=== PATIENT | female | born 1975 | race Caucasian/White ===

== ENCOUNTER 2016-04-26 21:13 | Emergency (ER) | payer OTHER ==
[2016-04-26] MEDS ORDERED: ZOFRAN IV ONE (21:41)
[2016-04-26] MEDS ORDERED: NS 500 ML IV ONE (21:41)
[2016-04-26] MEDS ORDERED: BENADRYL IV ONE (21:41)
[2016-04-26] MEDS ORDERED: SOLU-MEDROL IV ONE (21:41)
[2016-04-26] MEDS ORDERED: SODIUM CHLORIDE 0.9% INJ ONE (21:41)
[2016-04-26] MEDS ORDERED: PEPCID IV ONE (21:41)
--- NOTE | 2016-04-26 22:47 | PROVIDER DOCUMENTATION ---
HPI-Rash/Wound/ReCheck - General Chief Complaint: Allergic Reaction Stated Complaint: RASH Time Seen by Provider: 04/26/16 21:40 Source: patient Allergies/Adverse Reactions: Allergies Allergy/AdvReac Type Severity Reaction Status Date / Time lansoprazole [From Prevacid] Allergy Severe RASH Verified 03/03/16 17:40 adhesive Allergy Mild RASH Verified 03/03/16 17:40 tramadol Allergy Unknown Verified 03/03/16 17:40 Home Medications: Home Medication List Medication Instructions Recorded Confirmed Last Taken Type Gabapentin 600 mg PO TID 01/28/14 03/03/16 02/13/16 History Clonazepam [Klonopin] 1 mg PO BID PRN PRN 04/14/15 03/03/16 02/13/16 History Oxycodone HCl/Acetaminophen 1 each PO Q6H 07/08/15 03/03/16 02/13/16 History [Percocet 10-325 mg Tablet] Ergocalciferol (Vitamin D2) 50,000 unit PO DIRECTED 03/03/16 03/03/16 Unknown History [Vitamin D] Phenytoin [Dilantin] 400 mg PO QHS 03/03/16 03/03/16 Unknown History Epinephrine Auto Injector [Epipen] 0.3 mg IM DIRECTED PRN PRN #1 04/26/16 Unknown Rx [email or web address] Ondansetron Odt [Zofran 8Mg Odt] 8 mg PO Q8H PRN PRN #20 tablet 04/26/16 Unknown Rx - History of Present Illness-Dermatology Nature of Presenting Problem: 40 yof with generalized rash and itching. Pt not sure what has caused it at this time. Pt denies any SOB or throat itching. Location: reports: generalized Quality: reports: itchy Severity: reports: moderate Onset/Duration: reports: abrupt Timing: reports: still present, getting worse Context/Associated Symptoms: reports: rash Identifiable cause?: No Exposure: reports: unknown cause Modifying Factors: worse with: antihistamine, calamine lotion, prednisone, scratching, topical steriods, other Similar Symptoms Previously?: No Recently seen or treated by another doctor?: No Review of Systems - Adult - REVIEW OF SYSTEMS - ADULT Constitutional: reports: see HPI. denies: no symptoms reported, chills, fever, fatique, night sweats, weight gain, weight loss, other Eyes: reports: no symptoms reported. denies: see HPI, discharge, dry eyes, decreased vision, blurred vision, double vision, eye pain, redness, other Ears, Nose, Mouth & Throat: reports: no symptoms reported. denies: see HPI, ear discharge, ear pain, hearing loss, tinnitus, epistaxis, sinus problem, nose pain, loose teeth, mouth/dental pain, mouth swelling, hoarseness, throat pain, throat swelling, other Cardiovascular: reports: no symptoms reported. denies: see HPI, chest pain, edema, heart murmur, irregular heart rate, orthopnea, palpitations, poor circulation, PND, syncope, other Respiratory: reports: no symptoms reported. denies: see HPI, chronic cough, cough, dyspnea on exertion, excessive sputum production, hemoptysis, pleurisy, shortness of breath, wheezing, other Gastrointestinal: reports: no symptoms reported. denies: see HPI, abdominal pain, hematemesis, constipation, diarrhea, difficulty swallowing, frequent heartburn, nausea, poor appetite, rectal bleeding, vomiting, other Genitourinary: reports: no symptoms reported. denies: see HPI, dysuria, discharge, frequency, flank pain, frequent UTI's, hematuria, hesitency, incontinence, urinary retention, urgency, other Integumentary: reports: see HPI, hives, rash. denies: no symptoms reported, hair loss, itching, mole changes, nail changes, skin sores/ulcer, skin thickening, other Neurological: reports: no symptoms reported. denies: see HPI, ataxia, dizziness /vertigo, headache/migraines, loss of balance, numbness, paresthesia, seizure, slurred speech, syncope, tremors, other All Other Systems: Reviewed and Negative Past History - Adult - PAST MEDICAL HISTORY-ADULT Review of Records: reports: Old Records Reviewed, Nursing Assessment Review, Medications Reviewed, Social history reviewed & non-contributory. 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 Cantu according to pt at age 20) Psychiatric: reports: bipolar, depression Endocrine/Immune: reports: denies history Other Conditions: reports: denies history - PRIOR SURGERIES/PROCEDURES Surgical/Procedure History: reports: appendectomy, hysterectomy, BTL, , back/neck (L4 and L5), gastric bypass - IMMUNIZATION STATUS Childhood Immunizations: See Nurse Assessment Flu Vaccine: See Nurse Assessment - FAMILY HISTORY Family History: reviewed, not pertinent Physical Exam-General - PHYSICAL EXAM-ADULT Initial Vital Signs Reviewed: Yes - CONSTITUTIONAL General Appearance: appears well, alert, moderate distress - EYES Eyes: PERRL/EOMI, pink conjunctivae. negative: fundi clear, no AV nicking, anisocoria, conjuctival exudate, EOM palsy, meningismus, pale conjunctivae, photophobia, sclera injected, scleral icterus, subconjunctival hemorrhage, sunken eyes, other - HEAD, EARS, NOSE, MOUTH & THROAT HENMT: normocephalic/atraumatic, moist mucous membranes, normal ENT inspection, TMs normal, pharynx normal. negative: angioedema, dental decay, hearing deficit , pharyngeal erythema, tonsillar exudate, TM abnormal, TM obscurred by cerumen, frontal tenderness, maxillary tenderness, other - NECK Neck: non-tender, full range of motion, supple, normal inspection. negative: Brudzinski's sign, carotid bruit, C-spine tenderness, limited range of motion, lymphadenopathy, meningismus, trachial deviation, tender lateral, tender midline , thyromegaly, other - RESPIRATORY Respiratory: chest non-tender, lungs clear, normal breath sounds, no pleuratic chest pain, no respiratory distress, no accessory muscle use. negative: respiratory distress, decreased breath sounds, accessory muscle use, crackles, rales, rhonchi, stridor, wheezing, dull on percussion, prolonged expiration, pain on inspiration, plerual rub, retractions, splinting, decreased rate, increased rate, crepitus, other - CARDIOVASCULAR Cardiovascular: normal peripheral pulses, regular rate, rhythm, no edema, no gallop, no JVD, no murmur. negative: JVD, bradycardia, tachycardia, diastolic murmur, systolic murmur, gallop/S3, gallop/S4, extra beats, friction rub, irregularly irregular, PMI displaced laterally, other - GASTROINTESTINAL (ABDOMEN) Abdominal Exam: normal bowel sounds, non tender, soft, no organomegaly, no pulsatile mass. negative: abdominal bruit, abnormal bowel sounds, distended, guarding, rigid, rebound, tenderness, hernia, mass, hepatomegaly, spleenomegaly , McBurney's point tenderness, Cody's sign, obturator sign, prominent aortic pulsations, psoas, Rovsing's sign, other - GENITOURINARY Female Genitalia/Pelvic Exam: deferred - LYMPHATIC Lymphatic: no adenopathy. negative: axilla node tender, cervical node tenderness, inguinal node tender, enlargement, striations, streaking, other - MUSCULOSKELETAL Back Exam: normal inspection, no CVA tenderness, no vertebral tenderness. negative: CVA tenderness, decreased range of motion, ecchymosis, kyphosis, lordosis, muscle spasm, scoliosis, swelling, vertebral tenderness, other Extremity: normal range of motion, non-tender, normal gait, normal inspection, no pedal edema, no calf tenderness, normal capillary refill, pelvis stable. negative: abnormal NV exam, calf tenderness, deformity, erythema, inflammation, joint effusion, pulse deficit, pedal edema, slow capillary refill, swelling, tenderness, other Peripheral Pulses: radial (R): 2+, radial (L): 2+ - SKIN Integumentary: erythema, rash, warm - NEUROLOGIC Neurologic: grossly normal - PSYCHIATRIC Psych/Mental Status: oriented x 3 Progress - PLAN OF CARE/RESULTS Progress/Plan/Lab Results: Orders Category Date Time Status 0.9% Sodium Chloride Inj [Ns] 500 ml Med 04/26/16 21:41 Discontinued IV 999 mls/hr Diphenhydramine [Benadryl] Med 04/26/16 21:41 Discontinued 50 mg IV NOW ONE Famotidine [Pepcid] Med 04/26/16 21:41 Discontinued 20 mg IV NOW ONE Methylprednisolone Sod Succ [Solu-Medrol] Med 04/26/16 21:41 Discontinued 125 mg IV NOW ONE Ondansetron [Zofran] Med 04/26/16 21:41 Discontinued 4 mg IV NOW ONE Sodium Chloride 0.9% Med 04/26/16 21:41 Discontinued 5 - 10 ml INJ NOW ONE Vital Signs Temp Pulse Resp BP Pulse Ox 04/26/16 23:16 97.9 F 60 20 116/67 100 04/26/16 21:18 98 F 77 18 129/95 100 lansoprazole [From Prevacid] Allergy (Severe, Verified 03/03/16 17:40) RASH adhesive Allergy (Mild, Verified 03/03/16 17:40) RASH tramadol Allergy (Verified 03/03/16 17:40) Unknown Gabapentin 600 mg PO TID 01/28/14 Clonazepam [Klonopin] 1 mg PO BID PRN PRN 04/14/15 Oxycodone HCl/Acetaminophen [Percocet 10-325 mg Tablet] 1 each PO Q6H 07/08/15 Ergocalciferol (Vitamin D2) [Vitamin D] 50,000 unit PO DIRECTED 03/03/16 Phenytoin [Dilantin] 400 mg PO QHS 03/03/16 Epinephrine Auto Injector [Epipen] 0.3 mg IM DIRECTED PRN PRN #1 [email or web address] 04/26/16 Ondansetron Odt [Zofran 8Mg Odt] 8 mg PO Q8H PRN PRN #20 tablet 04/26/16 ANXIETY DISORDER, UNSPECIFIED (04/26/16) PRURITUS, UNSPECIFIED (04/26/16) RASH AND OTHER NONSPECIFIC SKIN ERUPTION (04/26/16) UNSPECIFIED CONVULSIONS (04/26/16) ALLERGY, UNSPECIFIED, INITIAL ENCOUNTER (04/26/16) OTHER RESIDENTIAL (CURRENT) DRUG THERAPY (04/26/16) BARIATRIC SURGERY STATUS (04/26/16) Departure - Departure Time of Disposition Order: 22:45 DIAGNOSIS: Allergic reaction Qualifiers: Encounter type: initial encounter Qualified Code(s): T78.40XA - Allergy, unspecified, initial encounter Disposition: HOME 01 Certified Medical Emergency: Emergent Condition: Stable Additional Instructions: ED Follow Up Instructions: You have been treated by a care provider in the Emergency Department. These instructions are being provided to you so you can have an understanding of how to care for yourself upon discharge. Upon discharge from the Emergency Department, you are responsible for making arrangements for follow-up care by a physician of your choice. Take all prescribed medications as directed. Return to the Emergency Department immediately for any new or worsening symptoms. You may call the Physician Referral phone number at [phone] to obtain a list of Physicians who are taking new patients. Prescriptions: Epinephrine Auto Injector [Epipen] 0.3 mg IM DIRECTED PRN PRN #1 [email or web address] PRN Reason: allegic reaction Ondansetron Odt [Zofran 8Mg Odt] 8 mg PO Q8H PRN PRN #20 tablet PRN Reason: Nausea Referrals: Enmanuel Green MD [Primary Care Provider] - Forms: Return to School/Parent Work Instructions: Epinephrine injection, Allergies, [id number] Attestation - Physician/ FELECIA Attestation Patient care was provided by Advanced Practice Provider:: Yes Advanced Practice Provider:: Donaldo Duff Advanced Practice Provider documentation review:: The Mid-level provider documentation, treatment plan and medical decision making was reviewed by the physician who agrees with all treatment and medical decision making by the [facility]. Physician Attestation - Physician Attestation I, the provider, attest to the following statement:: Jose A Zepeda Physician documentation Attestation:: This documentation recorded by the scribe accurately reflects the service I personally performed and the decisions made by me.
[2016-04-26 23:17] VITALS: BP 116/67
== END 2016-04-26 23:16 | disposition home or self-care (01) ==
LOC: P.ED 21:13
DX: T78.40XA Allergy, unspecified, initial encounter (principal); R21 Rash and other nonspecific skin eruption; L29.9 Pruritus, unspecified; L50.9 Urticaria, unspecified; R56.9 Unspecified convulsions; F41.9 Anxiety disorder, unspecified; Z79.899 Other long term (current) drug therapy; Z98.84 Bariatric surgery status
CPT/HCPCS: 96361; 96374; 96375; J1200; J2405; J2930; J7040; S0028